=== PATIENT | female | born 2000 | race African-American/Black ===

== ENCOUNTER 2024-04-29 22:44 | Emergency (ER) | payer SELFPAY ==
[~2024-04-29] VITALS: Ht 160 cm; Wt 55.0 kg
[2024-04-29] MEDS: MIDAZOLAM HCL 2 MG/2 ML VIAL IV ONE (23:42)
[2024-04-30 00:26] VITALS: O2SAT 98
[2024-04-30] MEDS: MIDAZOLAM HCL 2 MG/2 ML VIAL IV ONE (00:26)
[2024-04-30] MEDS: MORPHINE SULFATE 4 MG/ML INJ (FOR IV/IM USE) IV ONE (00:26)
[2024-04-30 01:10] VITALS: O2SAT 99
[2024-04-30] MEDS: KETAMINE HCL 50 MG/ML 10ML IV ONE (01:18)
[2024-04-30] MEDS ORDERED: IBUP-2028 MT (02:00)
[2024-04-30 04:53] VITALS: BP 112/86; PULSE 76; RESP 16; TEMP 36.9; O2SAT 99
== END 2024-04-30 05:09 | disposition home or self-care (01) ==
LOC: ER 22:44
DX: S83.015A Lateral dislocation of left patella, initial encounter (principal); X58.XXXA Exposure to other specified factors, initial encounter; Y93.89 Activity, other specified; Y92.89 Other specified places as the place of occurrence of the external cause; Y99.8 Other external cause status
CPT/HCPCS: 27560; 99152; 99285; 73562; 96374; J2250 ×2; Z7610 ×5; J3490; J2270; L1830; 96375; A4606